=== PATIENT | female | born 1980 | race Two or more races ===

== ENCOUNTER 2019-11-22 05:31 | Inpatient (IN) | payer BC, OTHER ==
[2019-11-22] MEDS: Lactated Ringers 1,000 ML IV SCH ×2 (05:45→06:40)
[2019-11-22] MEDS ORDERED: ceFAZolin 2 GM in Premix Bag 1 BAG IV ONE (06:00)
[2019-11-22] MEDS ORDERED: Sodium Chloride 0.9% 10 ML SDV IV PRN (06:04)
[2019-11-22] MEDS ORDERED: Sodium Chloride 0.9% 10 ML Syringe FLUSH PRN (06:04)
[2019-11-22] MEDS ORDERED: Sodium Chloride 0.9% 2.5 ML Syringe FLUSH PRN (06:04)
[2019-11-22] MEDS ORDERED: Citric Acid/Sodium Citrate Solution 30 ML Cup PO ONE (06:04)
[2019-11-22] MEDS ORDERED: Oxytocin/0.9 % Sodium Chloride 30 UNIT/500 ML BAG IV SCH (06:15)
[2019-11-22] MEDS ORDERED: Ondansetron 4 MG/2 ML SDV ONE (07:19)
[2019-11-22] MEDS ORDERED: Oxytocin 10 Units/1 ML SDV ONE (07:19)
[2019-11-22] MEDS ORDERED: Morphine PF 10 MG/10 ML SDV ONE (07:19)
[2019-11-22] MEDS ORDERED: ceFAZolin 1 GM Vial ONE (07:19)
[2019-11-22] MEDS ORDERED: Sodium Chloride 0.9% 20 ML ONE (07:19)
--- NOTE | 2019-11-22 07:37 | PCM.PREANE ---
Preanesthetic Assessment - Anesthesia/Transfusion/Family Hx Anesthesia History: Prior Anesthesia Without Reaction Family History of Anesthesia Reaction: No Transfusion History: Prior Transfusion Without Reaction - Review of Systems General: No Symptoms Pulmonary: No Symptoms Cardiovascular: No Symptoms Gastrointestinal: No Symptoms Neurological: No Symptoms Other: Reports: None - Physical Assessment NPO Status Date: 11/21/19 Height: 5 ft 4 in Weight: 102.058 kg ASA Class: 2 Mental Status: Alert & Oriented x3 Airway Class: Mallampati = 3 Dentition: Reports: Normal Dentition ROM/Head Extension: Full Lungs: Clear to Auscultation, Normal Respiratory Effort Cardiovascular: Regular Rate, Regular Rhythm - Lab Values: Laboratory Last Values WBC 6.83 K/uL (4.0-11.0) 11/22/19 06:20 RBC 3.57 M/uL (4.30-5.90) L 11/22/19 06:20 Hgb 9.2 g/dL (12.0-16.0) L 11/22/19 06:20 Hct 29.5 % (36.0-46.0) L 11/22/19 06:20 MCV 82.6 fL (80.0-98.0) 11/22/19 06:20 MCH 25.8 pg (27.0-32.0) L 11/22/19 06:20 MCHC 31.2 g/dL (31.0-37.0) 11/22/19 06:20 RDW Std Deviation 42.7 fl (28.0-62.0) 11/22/19 06:20 RDW Coeff of Amalia 14 % (11.0-15.0) 11/22/19 06:20 Plt Count 276 K/uL (150-400) 11/22/19 06:20 MPV 10.90 fL (7.40-12.00) 11/22/19 06:20 Nucleated RBC % 0.0 /100WBC 11/22/19 06:20 Nucleated RBCs # 0 K/uL 11/22/19 06:20 Blood Type O POSITIVE 11/22/19 06:20 Antibody Screen NEGATIVE 11/22/19 06:20 - Allergies Allergies/Adverse Reactions: Allergies Allergy/AdvReac Type Severity Reaction Status Date / Time No Known Allergies Allergy Verified 11/18/19 10:05 - Blood Blood Available: No - Anesthesia Plan Pre-Op Medication Ordered: Antacids - Acknowledgements Anesthesia Type Planned: Spinal Pt an Appropriate Candidate for the Planned Anesthesia: Yes Alternatives and Risks of Anesthesia Discussed w Pt/Guardian: Yes Pt/Guardian Understands and Agrees with Anesthesia Plan: Yes Additional Comments: pmh: scheduled repeat c section, anemia with Hb of 9, platelets 276k PLAN: spinal with duramorph PreAnesthesia Questionnaire HEENT History: Reports: None Cardiovascular History: Reports: None Respiratory History: Reports: None Gastrointestinal History: Reports: None Genitourinary History: Reports: None TESTER WASTE DISPOSAL LEAKAGE History: Reports: , Other (See Below) Other OB/BYN History: Cesearean and D&C Musculoskeletal History: Reports: None Neurological History: Reports: None Psychiatric History: Reports: None Endocrine/Metabolic History: Reports: Obesity/BMI 30+ Hematologic History: Reports: Blood Transfusion(s) Immunologic History: Reports: None Oncologic (Cancer) History: Reports: None Dermatologic History: Reports: None - Past Surgical History Head Surgeries/Procedures: Reports: None HEENT Surgical History: Reports: None Cardiovascular Surgical History: Reports: None Respiratory Surgical History: Reports: None GI Surgical History: Reports: Cholecystectomy Female Surgical History: Reports: Section Endocrine Surgical History: Reports: None Neurological Surgical History: Reports: None Musculoskeletal Surgical History: Reports: None Oncologic Surgical History: Reports: None Dermatological Surgical History: Reports: None - SUBSTANCE USE Smoking Status *Q: Never Smoker - HOME MEDS Home Medications: Home Meds Pnv No.95/Ferrous Fum/Folic AC [ Vitamin Tablet] 1 tab PO DAILY 11/18/19 [History] - CURRENT (IN HOUSE) MEDS Current Meds: Current Medications Oxytocin/Sodium Chloride (Oxytocin 30 Unit/500 Ml-Ns) 30 unit in 500 mls @ 250 mls/hr IV TITRATE [facility] Lactated Ringer's (Ringers, Lactated) 1,000 mls @ 500 mls/hr IV BOLUS [facility] Last Admin: 11/22/19 06:40 Dose: 500 mls/hr Documented by: Sodium Chloride (Saline Flush) 10 ml FLUSH ASDIRECTED PRN PRN Reason: Keep Vein Open Sodium Chloride (Saline Flush) 2.5 ml FLUSH ASDIRECTED PRN PRN Reason: Keep Vein Open Sodium Chloride (Normal Saline) 10 ml IV ASDIRECTED PRN PRN Reason: IV Use Discontinued Medications Cefazolin Sodium (Ancef) Confirm Administered Dose 2 gm .ROUTE .STK-MED ONE Stop: 11/22/19 07:20 Citric Acid/Sodium Citrate (Bicitra Solution) 30 ml PO ONETIME ONE Stop: 11/22/19 06:05 Ephedrine Sulfate (Emerphed) Confirm Administered Dose 50 mg .ROUTE .STK-MED ONE Stop: 11/22/19 07:20 Cefazolin Sodium/Dextrose 2 gm (/ Premix) 50 mls @ 100 mls/hr IV ONETIME ONE Stop: 11/22/19 06:29 Sodium Chloride (Normal Saline) Confirm Administered Dose 20 mls @ as directed .ROUTE .STK-MED ONE Stop: 11/22/19 07:20 Morphine Sulfate (Duramorph Pf) Confirm Administered Dose 10 mg .ROUTE .STK-MED ONE Stop: 11/22/19 07:20 Ondansetron HCl (Zofran) Confirm Administered Dose 4 mg .ROUTE .STK-MED ONE Stop: 11/22/19 07:20 Oxytocin (Pitocin) Confirm Administered Dose 30 unit .ROUTE .STK-MED ONE Stop: 11/22/19 07:20
[2019-11-22] MEDS ORDERED: fentaNYL 100 MCG/2 ML SDV IVPUSH PRN (07:42)
[2019-11-22] MEDS ORDERED: Acetaminophen/oxyCODONE 325-5 MG Tab PO PRN ×2 (07:42→09:03)
[2019-11-22] MEDS ORDERED: Glycopyrrolate 0.2 MG/ML SDV ONE (08:06)
[2019-11-22] MEDS ORDERED: fentaNYL 100 MCG/2 ML SDV ONE (08:32)
[2019-11-22] MEDS ORDERED: diphenhydrAMINE 50 MG/ML SDV ONE (08:35)
[2019-11-22] MEDS ORDERED: Tranexamic Acid 1,000 MG in Sodium Chloride 0.9% 100 ML IV PRN (09:03)
[2019-11-22] MEDS ORDERED: Ondansetron 4 MG/2 ML SDV IVPUSH PRN (09:03)
[2019-11-22] MEDS ORDERED: diphenhydrAMINE 50 MG/ML SDV IVPUSH PRN (09:03)
[2019-11-22] MEDS ORDERED: Methylergonovine 0.2 MG/1 ML Amp IM PRN (09:03)
[2019-11-22] MEDS ORDERED: Oxytocin 10 Units/1 ML SDV IM PRN (09:03)
[2019-11-22] MEDS ORDERED: Lanolin 100% Cream 7 GM Tube TOP PRN (09:03)
[2019-11-22] MEDS ORDERED: Misoprostol 200 MCG Tab RECTAL PRN (09:03)
[2019-11-22] MEDS ORDERED: Bisacodyl 10 MG Supp RECTAL PRN (09:03)
[2019-11-22] MEDS ORDERED: Lactated Ringers 1,000 ML IV SCH (09:15)
--- NOTE | 2019-11-22 09:22 | PCM.OPNOTE ---
- General Post-Op/Procedure Note Date of Surgery/Procedure: 11/22/19 Operative Procedure(s): Repeat LTCS Findings: Viable female APGARs 9, 9 weight 8 lb 4 oz, delivery intact placenta with 3V cord Pre Op Diagnosis: 39 week IUP. Previous LTCS, desires repeat Post-Op Diagnosis: Same Anesthesia Technique: Spinal Primary Surgeon: Zoya Raines Casting Room Helper: Alla Vanessa Fluid Replacement, Intraop: 1,100 EBL in mLs: 600 Complications: none known Condition: Good Free Text/Narrative:: Dictation [id number]
[2019-11-22] MEDS: Ketorolac 30 MG/ML SDV IVPUSH SCH ×3 (09:31→21:15)
--- NOTE | 2019-11-22 09:54 | PCM.POSTAN ---
POST ANESTHESIA ASSESSMENT - MENTAL STATUS Mental Status: Alert, Oriented - RESPIRATORY Respiratory Status: Respiratory Rate WNL, Airway Patent, O2 Saturation Stable - CARDIOVASCULAR CV Status: Pulse Rate WNL, Blood Pressure Stable - GASTROINTESTINAL GI Status: No Symptoms - POST OP HYDRATION Hydration Status: Adequate & Stable
[2019-11-22] MEDS: Simethicone 80 MG Tab.Chew PO SCH ×3 (12:00→23:56)
--- NOTE | 2019-11-22 12:45 | OR ---
SURGEON: Zoya Raines M.D. DATE OF PROCEDURE: 11/22/2019 PREOPERATIVE DIAGNOSES: 1. A 39-week intrauterine . 2. Previous section, desires repeat. POSTOPERATIVE DIAGNOSES: 1. A 39-week intrauterine . 2. Previous section, desires repeat. PROCEDURE: Repeat low transverse section. PRIMARY SURGEON: Zoya Raines MD MAPPING ENGINEER: Alla Vanessa MD ANESTHESIA: Spinal. ESTIMATED BLOOD LOSS: 600 mL. FLUIDS: 1100 mL of crystalloid. COMPLICATIONS: None known. FINDINGS: Viable female, score of 9 at one minute and 9 at five minutes, weight is 8 pounds 4 ounces. Delivery, intact placenta, 3-vessel cord. Normal-appearing pelvis. DISPOSITION: Infant to nursery, mom in PACU, stable. PROCEDURE DETAILS: Kimmie is a 39-year-old female who presents today for scheduled repeat delivery. Risks of procedure have been discussed. Proper consent obtained. The patient was taken to the operating room where she underwent spinal anesthesia, was then placed in dorsal supine position with a leftward tilt. SCDs to the lower extremities. Wang to gravity. Was prepped and draped in usual sterile fashion. Received Ancef prophylactically. Time-out was performed. Anesthesia was tested, found to be adequate. Previous Pfannenstiel scar was now excised followed by incision on the subcutaneous tissue down to the level of the rectus fascia, which was incised in the midline, lateralized on either side sharply and bluntly. Superior aspect of the fascia was tented upward, dissected sharply and bluntly away from underlying muscle. In a similar fashion, this was performed with the inferior aspect of the fascia. Rectus muscles were in the midline sharply and bluntly. Peritoneum was entered. Rectus muscles and peritoneum were now lateralized bluntly. Uterine position and position palpated. Self-retaining retractor was gently placed. Uterovesical reflection was visualized. Bladder flap was created, mobilized away from the lower uterine segment. Low transverse hysterotomy was performed. Uterine cavity was entered with blunt-ended scalpel. Hysterotomy was lateralized bluntly. Amniotomy was now performed, clear fluid was returned. The infant's head was flexed and fundal pressure was applied while the head was delivered followed by anterior shoulder, posterior shoulder, and the remainder of the body without difficulty. A loose nuchal cord x1 was reduced manually. The infant's oropharynx and nares were bulb suctioned. Cord was clamped x2 and cut. The was handed off to attending nursery staff. Cord arterial, cord venous, cord blood sampling was obtained. The placenta was now delivered. Uterine cavity was cleared of all clot and debris. Hysterotomy repaired using 0 Vicryl in continuous running locked fashion followed by re- imbricating layer. In the midline, there was some bleeding noted, therefore this was replicated with 2 [id number] sutures. Hemostasis thereafter evident. Any areas of serosal oozing were cauterized. Posterior aspect of the uterus inspected. No defects or hematomas found be forming. Region was well irrigated, suction dried. Uterus returned to the abdominal cavity. Colonic gutters were cleared of all clot and debris, well irrigated, suction dried. Self-retaining retractor now gently removed. Bladder blade was placed. Hysterotomy once again inspected, found to be hemostatic. The rectus muscle was reapproximated using 0 Vicryl with inverted mattress suture technique. Anterior aspect of the muscle and posterior aspect of the fascia were inspected, any areas of oozing were cauterized. Rectus fascia was now replicated using 0 Vicryl with continuous running fashion beginning laterally on either side and meeting in the midline. Subcutaneous tissue was now well irrigated, suction dried. Any areas of oozing were cauterized. Deep subcutaneous tissue was reapproximated using 3-0 plain in continuous running fashion. The skin edges were reapproximated using Bay needle and 3-0 Vicryl in subcuticular fashion followed by half-inch Steri-Strips and Mastisol. The patient has tolerated the procedure well overall. Sponge, instrument, and needle count was correct x2. Uterus remained firm. The patient will go to PACU in stable condition. DAINA / DELICIA /[id number] JORGE
[2019-11-22] MEDS: Nalbuphine 10 MG/1 ML Vial IVPUSH PRN ×2 (14:31→20:03)
[2019-11-22] MEDS: Docusate Sodium 100 MG Cap PO SCH (21:20)
[2019-11-23] MEDS: Ketorolac 30 MG/ML SDV IVPUSH SCH ×2 (03:55→09:31)
[2019-11-23] MEDS: Simethicone 80 MG Tab.Chew PO SCH ×4 (05:59→23:08)
[2019-11-23] MEDS: Docusate Sodium 100 MG Cap PO SCH ×2 (09:31→20:13)
--- NOTE | 2019-11-23 09:43 | PCM48HPAN ---
Post Anesthesia Note - EVALUATION WITHIN 48HRS OF ANESTHETIC Vital Signs in Normal Range: Yes Patient Participated in Evaluation: Yes Respiratory Function Stable: Yes Airway Patent: Yes Cardiovascular Function Stable: Yes Hydration Status Stable: Yes Pain Control Satisfactory: Yes Nausea and Vomiting Control Satisfactory: Yes Mental Status Recovered: Yes Vital Signs: Last Vital Signs Temp 37.1 C 11/23/19 04:00 Pulse 76 11/23/19 06:59 Resp 16 11/23/19 06:59 BP 95/50 L 11/23/19 04:00 Pulse Ox 98 11/23/19 06:59 - COMMENTS/OBSERVATIONS Free Text/Narrative:: Denies pain at rest, ambulating without difficulty, reports full return of strength and sensation to BLE.
--- NOTE | 2019-11-23 10:12 | PCM.PNPP ---
- General Info Date of Service: 11/23/19 Functional Status: Reports: Pain Controlled, Tolerating Diet, Ambulating, Urinating, Other (passing flatus) - Review of Systems General: Reports: No Symptoms HEENT: Reports: No Symptoms Pulmonary: Reports: No Symptoms Cardiovascular: Reports: No Symptoms Gastrointestinal: Reports: No Symptoms Genitourinary: Reports: No Symptoms Musculoskeletal: Reports: No Symptoms Skin: Reports: No Symptoms Neurological: Reports: No Symptoms Psychiatric: Reports: No Symptoms - Patient Data Vital Signs - Most Recent: Last Vital Signs Temp 37.1 C 11/23/19 04:00 Pulse 76 11/23/19 06:59 Resp 16 11/23/19 06:59 BP 95/50 L 11/23/19 04:00 Pulse Ox 98 11/23/19 06:59 Weight - Most Recent: 151 lb I&O - Last 24 Hours: Intake & Output 11/22/19 11/23/19 11/23/19 22:59 06:59 14:59 Intake Total 836 Output Total 1000 2875 Balance -1000 -2038 Lab Results - Last 24 Hours: Laboratory Results - last 24 hr 11/23/19 Range/Units 05:25 WBC 10.23 (4.0-11.0) K/uL RBC 3.02 L (4.30-5.90) M/uL Hgb 7.7 L (12.0-16.0) g/dL Hct 24.1 L (36.0-46.0) % MCV 79.8 L (80.0-98.0) fL MCH 25.5 L (27.0-32.0) pg MCHC 32.0 (31.0-37.0) g/dL RDW Std Deviation 41.3 (28.0-62.0) fl RDW Coeff of Amalia 14 (11.0-15.0) % Plt Count 253 (150-400) K/uL MPV 10.40 (7.40-12.00) fL Nucleated RBC % 0.0 /100WBC Nucleated RBCs # 0 K/uL Med Orders - Current: Current Medications Bisacodyl (Dulcolax) 10 mg RECTAL ONETIME PRN PRN Reason: Constipation Diphenhydramine HCl (Benadryl) 25 mg IVPUSH Q6H PRN PRN Reason: Itching or Nausea Docusate Sodium (Colace) 100 mg PO BID [facility] Last Admin: 11/23/19 09:31 Dose: 100 mg Documented by: Emollient Ointment (Lansinoh Hpa) 0 gm TOP ASDIRECTED PRN PRN Reason: Sore Nipples Last Admin: 11/22/19 21:21 Dose: 7 gm Documented by: Oxytocin/Sodium Chloride (Oxytocin 30 Unit/500 Ml-Ns) 30 unit in 500 mls @ 250 mls/hr IV TITRATE [facility] Lactated Ringer's (Ringers, Lactated) 1,000 mls @ 500 mls/hr IV BOLUS [facility] Last Admin: 11/22/19 06:40 Dose: 500 mls/hr Documented by: Lactated Ringer's (Ringers, Lactated) 1,000 mls @ 125 mls/hr IV ASDIRECTED [facility] Last Admin: 11/22/19 19:00 Dose: 10 mls/hr Documented by: Tranexamic Acid 1,000 mg/ (Sodium Chloride) 110 mls @ 660 mls/hr IV ONETIME PRN PRN Reason: Bleeding Ibuprofen (Motrin) 800 mg PO Q8H PRN PRN Reason: mild pain or fever Methylergonovine Maleate (Methergine) 0.2 mg IM ONETIME PRN PRN Reason: Excessive Vaginal Bleeding Misoprostol (Cytotec) 1,000 mcg RECTAL ONETIME PRN PRN Reason: excessive bleeding Ondansetron HCl (Zofran) 4 mg IVPUSH Q4H PRN PRN Reason: Nausea/Vomiting Oxycodone/Acetaminophen (Percocet 325-5 Mg) 1 tab PO ONETIME PRN PRN Reason: Pain (moderate 4-6) Oxycodone/Acetaminophen (Percocet 325-5 Mg) 1 tab PO Q4H PRN PRN Reason: Pain (moderate 4-6) Oxycodone/Acetaminophen (Percocet 325-5 Mg) 2 tab PO Q4H PRN PRN Reason: Pain (moderate 4-6) Oxytocin (Pitocin) 10 unit IM ASDIRECTED PRN PRN Reason: Excessive Vaginal Bleeding Simethicone (Simethicone) 160 mg PO QID [facility] Last Admin: 11/23/19 05:59 Dose: 160 mg Documented by: Sodium Chloride (Saline Flush) 10 ml FLUSH ASDIRECTED PRN PRN Reason: Keep Vein Open Sodium Chloride (Saline Flush) 2.5 ml FLUSH ASDIRECTED PRN PRN Reason: Keep Vein Open Sodium Chloride (Normal Saline) 10 ml IV ASDIRECTED PRN PRN Reason: IV Use Discontinued Medications Cefazolin Sodium (Ancef) Confirm Administered Dose 2 gm .ROUTE .STK-MED ONE Stop: 11/22/19 07:20 Citric Acid/Sodium Citrate (Bicitra Solution) 30 ml PO ONETIME ONE Stop: 11/22/19 06:05 Last Admin: 11/22/19 07:55 Dose: 15 ml Documented by: Diphenhydramine HCl (Benadryl) Confirm Administered Dose 50 mg .ROUTE .STK-MED ONE Stop: 11/22/19 08:36 Ephedrine Sulfate (Emerphed) Confirm Administered Dose 50 mg .ROUTE .STK-MED ONE Stop: 11/22/19 07:20 Fentanyl (Sublimaze) 50 mcg IVPUSH Q5M PRN PRN Reason: Pain (severe 7-10) Stop: 11/23/19 07:43 Fentanyl (Sublimaze) Confirm Administered Dose 100 mcg .ROUTE .STK-MED ONE Stop: 11/22/19 08:33 Glycopyrrolate (Robinul) Confirm Administered Dose 0.2 mg .ROUTE .STK-MED ONE Stop: 11/22/19 08:07 Cefazolin Sodium/Dextrose 2 gm (/ Premix) 50 mls @ 100 mls/hr IV ONETIME ONE Stop: 11/22/19 06:29 Last Admin: 11/22/19 19:52 Dose: Not Given Documented by: Sodium Chloride (Normal Saline) Confirm Administered Dose 20 mls @ as directed .ROUTE .STK-MED ONE Stop: 11/22/19 07:20 Ketorolac Tromethamine (Toradol) 30 mg IVPUSH Q6H [facility] Stop: 11/23/19 09:16 Last Admin: 11/23/19 09:31 Dose: 30 mg Documented by: Morphine Sulfate (Duramorph Pf) Confirm Administered Dose 10 mg .ROUTE .STK-MED ONE Stop: 11/22/19 07:20 Nalbuphine HCl (Nubain) 2.5 mg IVPUSH Q3H PRN PRN Reason: Pruritis Stop: 11/23/19 07:43 Last Admin: 11/22/19 20:03 Dose: 2.5 mg Documented by: Ondansetron HCl (Zofran) Confirm Administered Dose 4 mg .ROUTE .STK-MED ONE Stop: 11/22/19 07:20 Oxytocin (Pitocin) Confirm Administered Dose 30 unit .ROUTE .STK-MED ONE Stop: 11/22/19 07:20 - Interaction Disposition, : at Bedside Interaction: Holding Infant Feeding: Breastfed ; Nursed Well - Recovery Exam Fundal Tone: Firm Fundal Level: 3 Fingerbreadths Below Umbilicus Fundal Placement: Midline Lochia Amount: Scant Lochia Color: Rubra/Red Perineum Description: Intact, Minimal Bruising/Swelling Episiotomy/Laceration: None Bladder Status: Indwelling Catheter in Place Urinary Elimination: Indwelling Catheter - Exam General: Alert, Oriented, Cooperative, No Acute Distress HEENT: Pupils Equal, Pupils Reactive Neck: Supple, Trachea Midline, No JVD Lungs: Normal Respiratory Effort GI/Abdominal Exam: Soft, Non-Tender Extremities: Normal Inspection, Normal Range of Motion, Non-Tender, No Pedal Edema Skin: Warm, Dry, Intact Wound/Incisions: Healing Well Neurological: No New Focal Deficit Psy/Mental Status: Alert, Normal Affect, Normal Mood - Problem List Review Problem List Initiated/Reviewed/Updated: Yes - Assessment Assessment:: 39yo POD1 s/p repeat LTCS, stable and recovering well. - Plan Plan:: vitals stable Hgb 7.7 this AM, bleeding light, denies s/s of anemia. Will start iron after discharge. Ambulating well, tolerating PO and passing flatus. well Plan for discharge home tomorrow when meeting all milestones
[2019-11-23] MEDS: Acetaminophen/oxyCODONE 325-5 MG Tab PO PRN ×3 (15:08→23:08)
[2019-11-23] MEDS ORDERED: Ibuprofen 800 MG Tab PO PRN (15:15)
[2019-11-24] MEDS: Acetaminophen/oxyCODONE 325-5 MG Tab PO PRN ×2 (03:12→08:11)
[2019-11-24] MEDS: Simethicone 80 MG Tab.Chew PO SCH (06:07)
[2019-11-24] MEDS: Docusate Sodium 100 MG Cap PO SCH (08:11)
--- NOTE | 2019-11-24 10:41 | PCM.PNPP ---
- General Info Date of Service: 11/24/19 Functional Status: Reports: Pain Controlled, Tolerating Diet, Ambulating, Urinating - Review of Systems General: Reports: No Symptoms HEENT: Reports: No Symptoms Pulmonary: Reports: No Symptoms Cardiovascular: Reports: No Symptoms Gastrointestinal: Reports: No Symptoms Genitourinary: Reports: No Symptoms Musculoskeletal: Reports: No Symptoms Skin: Reports: No Symptoms Neurological: Reports: No Symptoms Psychiatric: Reports: No Symptoms - Patient Data Vital Signs - Most Recent: Last Vital Signs Temp 36.7 C 11/24/19 08:15 Pulse 79 11/24/19 08:15 Resp 17 11/24/19 08:15 BP 103/53 L 11/24/19 08:15 Pulse Ox 95 11/24/19 08:15 Weight - Most Recent: 151 lb Med Orders - Current: Current Medications Bisacodyl (Dulcolax) 10 mg RECTAL ONETIME PRN PRN Reason: Constipation Diphenhydramine HCl (Benadryl) 25 mg IVPUSH Q6H PRN PRN Reason: Itching or Nausea Docusate Sodium (Colace) 100 mg PO BID [facility] Last Admin: 11/24/19 08:11 Dose: 100 mg Documented by: Emollient Ointment (Lansinoh Hpa) 0 gm TOP ASDIRECTED PRN PRN Reason: Sore Nipples Last Admin: 11/22/19 21:21 Dose: 7 gm Documented by: Oxytocin/Sodium Chloride (Oxytocin 30 Unit/500 Ml-Ns) 30 unit in 500 mls @ 250 mls/hr IV TITRATE [facility] Lactated Ringer's (Ringers, Lactated) 1,000 mls @ 500 mls/hr IV BOLUS [facility] Last Admin: 11/22/19 06:40 Dose: 500 mls/hr Documented by: Lactated Ringer's (Ringers, Lactated) 1,000 mls @ 125 mls/hr IV ASDIRECTED [facility] Last Admin: 11/22/19 19:00 Dose: 10 mls/hr Documented by: Tranexamic Acid 1,000 mg/ (Sodium Chloride) 110 mls @ 660 mls/hr IV ONETIME PRN PRN Reason: Bleeding Ibuprofen (Motrin) 800 mg PO Q8H PRN PRN Reason: mild pain or fever Methylergonovine Maleate (Methergine) 0.2 mg IM ONETIME PRN PRN Reason: Excessive Vaginal Bleeding Misoprostol (Cytotec) 1,000 mcg RECTAL ONETIME PRN PRN Reason: excessive bleeding Ondansetron HCl (Zofran) 4 mg IVPUSH Q4H PRN PRN Reason: Nausea/Vomiting Oxycodone/Acetaminophen (Percocet 325-5 Mg) 1 tab PO ONETIME PRN PRN Reason: Pain (moderate 4-6) Oxycodone/Acetaminophen (Percocet 325-5 Mg) 1 tab PO Q4H PRN PRN Reason: Pain (moderate 4-6) Oxycodone/Acetaminophen (Percocet 325-5 Mg) 2 tab PO Q4H PRN PRN Reason: Pain (moderate 4-6) Last Admin: 11/24/19 08:11 Dose: 2 tab Documented by: Oxytocin (Pitocin) 10 unit IM ASDIRECTED PRN PRN Reason: Excessive Vaginal Bleeding Simethicone (Simethicone) 160 mg PO QID [facility] Last Admin: 11/24/19 06:07 Dose: 160 mg Documented by: Sodium Chloride (Saline Flush) 10 ml FLUSH ASDIRECTED PRN PRN Reason: Keep Vein Open Sodium Chloride (Saline Flush) 2.5 ml FLUSH ASDIRECTED PRN PRN Reason: Keep Vein Open Sodium Chloride (Normal Saline) 10 ml IV ASDIRECTED PRN PRN Reason: IV Use Discontinued Medications Cefazolin Sodium (Ancef) Confirm Administered Dose 2 gm .ROUTE .STK-MED ONE Stop: 11/22/19 07:20 Citric Acid/Sodium Citrate (Bicitra Solution) 30 ml PO ONETIME ONE Stop: 11/22/19 06:05 Last Admin: 11/22/19 07:55 Dose: 15 ml Documented by: Diphenhydramine HCl (Benadryl) Confirm Administered Dose 50 mg .ROUTE .STK-MED ONE Stop: 11/22/19 08:36 Ephedrine Sulfate (Emerphed) Confirm Administered Dose 50 mg .ROUTE .STK-MED ONE Stop: 11/22/19 07:20 Fentanyl (Sublimaze) 50 mcg IVPUSH Q5M PRN PRN Reason: Pain (severe 7-10) Stop: 11/23/19 07:43 Fentanyl (Sublimaze) Confirm Administered Dose 100 mcg .ROUTE .STK-MED ONE Stop: 11/22/19 08:33 Glycopyrrolate (Robinul) Confirm Administered Dose 0.2 mg .ROUTE .STK-MED ONE Stop: 11/22/19 08:07 Cefazolin Sodium/Dextrose 2 gm (/ Premix) 50 mls @ 100 mls/hr IV ONETIME ONE Stop: 11/22/19 06:29 Last Admin: 11/22/19 19:52 Dose: Not Given Documented by: Sodium Chloride (Normal Saline) Confirm Administered Dose 20 mls @ as directed .ROUTE .STK-MED ONE Stop: 11/22/19 07:20 Ketorolac Tromethamine (Toradol) 30 mg IVPUSH Q6H [facility] Stop: 11/23/19 09:16 Last Admin: 11/23/19 09:31 Dose: 30 mg Documented by: Morphine Sulfate (Duramorph Pf) Confirm Administered Dose 10 mg .ROUTE .STK-MED ONE Stop: 11/22/19 07:20 Nalbuphine HCl (Nubain) 2.5 mg IVPUSH Q3H PRN PRN Reason: Pruritis Stop: 11/23/19 07:43 Last Admin: 11/22/19 20:03 Dose: 2.5 mg Documented by: Ondansetron HCl (Zofran) Confirm Administered Dose 4 mg .ROUTE .STK-MED ONE Stop: 11/22/19 07:20 Oxytocin (Pitocin) Confirm Administered Dose 30 unit .ROUTE .STK-MED ONE Stop: 11/22/19 07:20 - Infant Interaction Infant Disposition, : at Bedside Infant Interaction: Holding Infant Infant Feeding: Breastfed Infant; Nursed Well - Recovery Exam Fundal Tone: Firm Fundal Level: 3 Fingerbreadths Below Umbilicus Fundal Placement: Midline Lochia Amount: Scant Lochia Color: Rubra/Red Perineum Description: Intact, Minimal Bruising/Swelling Episiotomy/Laceration: None Bladder Status: Voiding Urinary Elimination: Voided - Exam General: Alert, Oriented, Cooperative, No Acute Distress HEENT: Pupils Equal, Pupils Reactive Neck: Supple, Trachea Midline, No JVD Lungs: Normal Respiratory Effort GI/Abdominal Exam: Soft, Non-Tender, No Distention Extremities: Normal Inspection, Normal Range of Motion, Non-Tender, No Pedal Edema Skin: Warm, Dry, Intact Wound/Incisions: Healing Well Neurological: No New Focal Deficit Psy/Mental Status: Alert, Normal Affect, Normal Mood - Problem List Review Problem List Initiated/Reviewed/Updated: Yes - Assessment Assessment:: 39yo POD2 s/p repeat LTCS, stable and recovering well. - Plan Plan:: vitals stable Hgb 7.7, bleeding light, denies s/s of anemia. Will start iron after discharge. Ambulating well, tolerating PO and passing flatus. well Plan for discharge home today, reviewed care instructions
== END 2019-11-24 11:44 | disposition home or self-care (01) | DRG 540 ==
LOC: MW.OB 05:31
PROVIDERS: ADMIT Obstetrics & Gynecology; ATTEND Obstetrics & Gynecology
PROC: 10D00Z1 Extraction of Products of Conception, Low, Open Approach (ICD-10-PCS; principal; 2019-11-22)
DX: O34.211 Maternal care for low transverse scar from previous cesarean delivery (principal); O99.02 Anemia complicating childbirth; D64.9 Anemia, unspecified; Z3A.39 39 weeks gestation of pregnancy; Z37.0 Single live birth; Z20.828 Contact with and (suspected) exposure to other viral communicable diseases
CPT/HCPCS: 01961; 36415; 51702; 59025; 82803; 85027; 86592; 86850; 86900; 86901; 86920; 86921; 86922; A9270-GY; J0690; J1200; J1885; J2270; J2300; J2405; J2590; J3010; J3490; J7120

== ENCOUNTER 2024-11-29 08:29 | Day surgery (SDC) | payer BC ==
[2024-11-29] MEDS ORDERED: propofoL 500 MG/50 ML 50 ML ONE (09:05)
[2024-11-29] MEDS: Lactated Ringers 1,000 ML IV SCH (09:25)
[2024-11-29] MEDS ORDERED: Propofol 200 MG/20 ML SDV ONE ×2 (10:02→10:09)
[2024-11-29] MEDS ORDERED: ePHEDrine 50 MG/ML SDV ONE (10:16)
== END 2024-11-29 11:22 | disposition home or self-care (01) ==
LOC: MW.SDS 08:29
PROVIDERS: ATTEND Surgery
DX: K29.50 Unspecified chronic gastritis without bleeding (principal); K31.89 Other diseases of stomach and duodenum; K31.7 Polyp of stomach and duodenum; K59.00 Constipation, unspecified; K64.8 Other hemorrhoids; K21.9 Gastro-esophageal reflux disease without esophagitis; F17.210 Nicotine dependence, cigarettes, uncomplicated; Z79.899 Other long term (current) drug therapy
CPT/HCPCS: 43239; 45380; 81025; J2003; J2704; J7120; J7999; 00813; J2371; J3490